=== PATIENT | female | born 1975 | race African-American/Black ===

== ENCOUNTER 2018-01-03 18:11 | Emergency (ER) | payer OTHER, MEDICAID ==
[~2018-01-03] VITALS: Ht 170.2 cm; Wt 86.2 kg
[~2018-01-03 18:11] MED LIST: ACCUNEB SO1.25 MG/1 INH; COZAAR 50 MG TA50 M1 PO; HYDROCHLOROTH12.5 M1 PO; HYDROCODONE-AP1 EAC6 PO; IBUPROFEN 600600 M1 PO; IRON325 PO; NAPROSYN500 MG PO; VITAMIN C500 M1 PO
[2018-01-03] MEDS ORDERED: PRINIVIL20 MG PO (18:26)
[2018-01-03] MEDS ORDERED: MS CONTIN15 MG PO (18:27)
[2018-01-03 19:23] LABS: ABSOLUTE EOSINOPHILS 0.1 thou/uL (0.0-0.7); ABSOLUTE LYMPHOCYTES 1.8 thou/uL (0.8-5.3); ABSOLUTE MONOCYTES 0.5 thou/uL (0.0-1.2); ABSOLUTE NEUTROPHILS 4.6 thou/uL (1.6-8.1); BASOPHILS 0.6 %; EOSINOPHILS 1.4 %; HEMATOCRIT 42.3 % (37.0-47.0); LYMPHOCYTES 25.4 %; MCH 28.7 pg (26.0-34.0); MCHC 33.1 g/dL (28.0-37.0); MCV 86.8 fL (80.0-100.0); MONOCYTES 7.3 %; MPV 8.7 fl. (7.2-11.1); NUCLEATED RBCS 0 /100WBC; PLATELET COUNT* 227 thou/uL (150-400); POLYS 65.3 %; RBC 4.88 mil/uL (4.20-5.00); RDW-CV 18.8 % (10.5-14.5)
[2018-01-03 19:23] LABS: URINE BILIRUBIN NEGATIVE (Negative); URINE BLOOD NEGATIVE (Negative); URINE CLARITY CLEAR; URINE COLOR YELLOW; URINE GLUCOSE-RANDOM NEGATIVE (Negative); URINE KETONES NEGATIVE (Negative); URINE LEUKOCYTES-REFLEX NEGATIVE (Negative); URINE NITRITE-REFLEX NEGATIVE (Negative); URINE PROTEIN NEGATIVE (Negative); URINE SPECIFIC GRAVITY 1.015 (1.005-1.030); URINE UROBILINOGEN 0.2 E.U./dl (0.2-1.0)
[2018-01-03 19:32] LABS: ANION GAP 12 mmol/L (7-16); BUN 6 mg/dL (7-18); CALCIUM 8.9 mg/dL (8.5-10.1); CHLORIDE 102 mmol/L (98-107); CO2 25 mmol/L (21-32); CREATININE 0.8 mg/dL (0.6-1.3); GLUCOSE 117 mg/dL (70-99); POTASSIUM 3.6 mmol/L (3.5-5.1); SODIUM 139 mmol/L (136-145)
[2018-01-03 19:39] LABS: ALBUMIN 3.7 g/dL (3.4-5.0); ALKALINE PHOSPHATASE 149 U/L (46-116); LIPASE 1100 U/L (73-393); SGOT 92 U/L (15-37); SGPT 71 U/L (30-65); TOTAL BILIRUBIN 0.4 mg/dL (<0.1-1.0); TOTAL PROTEIN 8.3 g/dL (6.4-8.2); TROPONIN-I LEVEL <0.06 ng/mL (<0.06)
[2018-01-03] MEDS ORDERED: PERCOCET PO (22:17)
[2018-01-03 22:42] VITALS: BP 172/88
== END 2018-01-03 22:45 | disposition home or self-care (01) ==
LOC: M.ERS 18:11
PROVIDERS: Physician Assistant
DX: K85.90 Acute pancreatitis without necrosis or infection, unspecified (principal); I10 Essential (primary) hypertension; F32.9 Major depressive disorder, single episode, unspecified; F41.9 Anxiety disorder, unspecified; J45.909 Unspecified asthma, uncomplicated; Z86.2 Personal history of diseases of the blood and blood-forming organs and certain disorders involving the immune mechanism; Z90.49 Acquired absence of other specified parts of digestive tract; Z88.5 Allergy status to narcotic agent; Z88.6 Allergy status to analgesic agent

== ENCOUNTER 2018-01-24 11:34 | Emergency (ER) | payer OTHER, MEDICAID ==
[~2018-01-24] VITALS: Ht 170.2 cm; Wt 82.6 kg
[~2018-01-24 11:34] MED LIST changes: +MS CONTIN15 MG PO; +PERCOCET PO; +PRINIVIL20 MG PO
[2018-01-24] MEDS ORDERED: LOPRESSOR50 PO (11:53)
[2018-01-24] MEDS ORDERED: ZOFRAN ODT4 MG PO (11:53)
[2018-01-24 12:27] LABS: ABSOLUTE MONOCYTES 0.5 thou/uL (0.0-1.2); ABSOLUTE NEUTROPHILS 6.6 thou/uL (1.6-8.1); BASOPHILS 0.5 %; EOSINOPHILS 0.1 %; HEMATOCRIT 41.3 % (37.0-47.0); HEMOGLOBIN 13.7 gm/dL (12.0-15.0); LYMPHOCYTES 22.2 %; MCH 28.9 pg (26.0-34.0); MCHC 33.3 g/dL (28.0-37.0); MONOCYTES 5.4 %; MPV 8.2 fl. (7.2-11.1); NUCLEATED RBCS 0 /100WBC; PLATELET COUNT* 307 thou/uL (150-400); POLYS 71.8 %; RBC 4.75 mil/uL (4.20-5.00); RDW-CV 18.7 % (10.5-14.5); WBC 9.1 thou/uL (4.0-11.0)
[2018-01-24 12:35] LABS: ANION GAP 16 mmol/L (7-16); APTT 25.9 Seconds (25.0-31.3); BUN 7 mg/dL (7-18); CALCIUM 9.4 mg/dL (8.5-10.1); CHLORIDE 98 mmol/L (98-107); CO2 22 mmol/L (21-32); CREATININE 0.8 mg/dL (0.6-1.3); GLUCOSE 86 mg/dL (70-99); INR 1.1; POTASSIUM 3.6 mmol/L (3.5-5.1); PROTIME 10.7 Seconds (9.20-11.50); SODIUM 136 mmol/L (136-145)
[2018-01-24 12:41] LABS: ALBUMIN 3.7 g/dL (3.4-5.0); ALKALINE PHOSPHATASE 120 U/L (46-116); AMYLASE 83 U/L (25-115); LIPASE 379 U/L (73-393); MAGNESIUM 1.9 mg/dL (1.8-2.4); SGOT 33 U/L (15-37); SGPT 33 U/L (30-65); TOTAL BILIRUBIN 0.5 mg/dL (<0.1-1.0); TOTAL PROTEIN 8.7 g/dL (6.4-8.2); TRIGLYCERIDE 86 mg/dL (<150); TROPONIN-I LEVEL <0.06 ng/mL (<0.06)
[2018-01-24 13:38] LABS: URINE BILIRUBIN NEGATIVE (Negative); URINE BLOOD NEGATIVE (Negative); URINE CLARITY CLEAR; URINE COLOR YELLOW; URINE GLUCOSE-RANDOM NEGATIVE (Negative); URINE KETONES NEGATIVE (Negative); URINE LEUKOCYTES-REFLEX NEGATIVE (Negative); URINE NITRITE-REFLEX NEGATIVE (Negative); URINE PROTEIN NEGATIVE (Negative); URINE SPECIFIC GRAVITY <= 1.005 (1.005-1.030); URINE UROBILINOGEN 0.2 E.U./dl (0.2-1.0)
[2018-01-24] MEDS ORDERED: PERCOCET 7.5-31 EACH PO (14:05)
[2018-01-24 14:25] VITALS: BP 168/73
== END 2018-01-24 14:27 | disposition home or self-care (01) ==
LOC: M.ERS 11:34
PROVIDERS: Personal Emergency Response Attendant
DX: K85.90 Acute pancreatitis without necrosis or infection, unspecified (principal); I10 Essential (primary) hypertension; F41.9 Anxiety disorder, unspecified; F32.9 Major depressive disorder, single episode, unspecified; J45.909 Unspecified asthma, uncomplicated; Z90.49 Acquired absence of other specified parts of digestive tract; Z88.5 Allergy status to narcotic agent; Z88.6 Allergy status to analgesic agent; Z86.2 Personal history of diseases of the blood and blood-forming organs and certain disorders involving the immune mechanism

== ENCOUNTER 2018-03-07 07:28 | Emergency (ER) | payer OTHER, MEDICAID ==
[~2018-03-07] VITALS: Ht 170.2 cm; Wt 82.6 kg
[~2018-03-07 07:28] MED LIST changes: +LOPRESSOR50 PO; +PERCOCET 7.5-31 EACH PO; +ZOFRAN ODT4 MG PO
[2018-03-07 08:11] LABS: HEMATOCRIT 44.6 % (37.0-47.0); HEMOGLOBIN 14.5 gm/dL (12.0-15.0); MCH 29.3 pg (26.0-34.0); MCHC 32.6 g/dL (28.0-37.0); MCV 89.9 fL (80.0-100.0); MPV 8.6 fl. (7.2-11.1); RBC 4.96 mil/uL (4.20-5.00); RDW-CV 17.2 % (10.5-14.5); WBC 4.7 thou/uL (4.0-11.0)
[2018-03-07 08:42] LABS: CREATININE 0.7 mg/dL (0.6-1.3); POTASSIUM 3.7 mmol/L (3.5-5.1)
[2018-03-07 08:52] LABS: ALBUMIN 3.7 g/dL (3.4-5.0); TOTAL BILIRUBIN 1.2 mg/dL (<0.1-1.0); TOTAL PROTEIN 8.8 g/dL (6.4-8.2)
[2018-03-07] MEDS ORDERED: NORCO 5-325 TA1 EACH PO (08:57)
[2018-03-07 09:09] VITALS: BP 184/94
== END 2018-03-07 09:10 | disposition home or self-care (01) ==
LOC: M.ERS 07:28
PROVIDERS: Emergency Medicine Emergency Medical Services
DX: M54.5 Low back pain (principal); W19.XXXA Unspecified fall, initial encounter; Y93.89 Activity, other specified; Y92.89 Other specified places as the place of occurrence of the external cause; Y99.8 Other external cause status

== ENCOUNTER 2018-07-16 15:06 | Emergency (ER) | payer OTHER, MEDICAID ==
[~2018-07-16] VITALS: Ht 170.2 cm; Wt 83.0 kg
[~2018-07-16 15:06] MED LIST changes: +NORCO 5-325 TA1 EACH PO
[2018-07-16] MEDS ORDERED: NAUSEA MEDICATION (15:17)
[2018-07-16] MEDS ORDERED: NORCO 5-325 TA1 EAC1 PO (15:37)
[2018-07-16 15:51] VITALS: BP 143/100
== END 2018-07-16 15:51 | disposition home or self-care (01) ==
LOC: M.ERS 15:06
DX: S02.5XXA Fracture of tooth (traumatic), initial encounter for closed fracture (principal); I10 Essential (primary) hypertension; F32.9 Major depressive disorder, single episode, unspecified; F41.9 Anxiety disorder, unspecified; Z86.2 Personal history of diseases of the blood and blood-forming organs and certain disorders involving the immune mechanism; Z90.49 Acquired absence of other specified parts of digestive tract; X58.XXXA Exposure to other specified factors, initial encounter; Y93.89 Activity, other specified; Y92.89 Other specified places as the place of occurrence of the external cause; Y99.8 Other external cause status

== ENCOUNTER 2018-10-25 17:01 | Emergency (ER) | payer OTHER, MEDICAID ==
[~2018-10-25] VITALS: Ht 170.2 cm; Wt 93.0 kg
[~2018-10-25 17:01] MED LIST changes: +NAUSEA MEDICATION; +NORCO 5-325 TA1 EAC1 PO
[2018-10-25 19:38] LABS: ABSOLUTE LYMPHOCYTES 1.5 thou/uL (0.8-5.3); ABSOLUTE MONOCYTES 0.5 thou/uL (0.0-1.2); ABSOLUTE NEUTROPHILS 7.2 thou/uL (1.6-8.1); BASOPHILS 0.4 %; EOSINOPHILS 0.4 %; HEMATOCRIT 35.1 % (37.0-47.0); HEMOGLOBIN 11.7 gm/dL (12.0-15.0); MCH 35.7 pg (26.0-34.0); MCHC 33.3 g/dL (28.0-37.0); MONOCYTES 5.6 %; MPV 9.4 fl. (7.2-11.1); NUCLEATED RBCS 0 /100WBC; PLATELET COUNT* 139 thou/uL (150-400); POLYS 77.6 %; RBC 3.28 mil/uL (4.20-5.00); RDW-CV 17.7 % (10.5-14.5); WBC 9.3 thou/uL (4.0-11.0)
[2018-10-25 19:44] LABS: CALCIUM 8.1 mg/dL (8.5-10.1); CREATININE 0.8 mg/dL (0.6-1.3); POTASSIUM 4.2 mmol/L (3.5-5.1)
[2018-10-25 19:49] LABS: ALBUMIN 1.5 g/dL (3.4-5.0); TOTAL BILIRUBIN 4.4 mg/dL (<0.1-1.0); TOTAL PROTEIN 6.8 g/dL (6.4-8.2)
[2018-10-25] MEDS ORDERED: NORCO 7.5-3251 EACH PO (20:17)
[2018-10-25] MEDS ORDERED: ALDACTONE100 MG PO (20:23)
[2018-10-25] MEDS ORDERED: LASIX 40 MG TAB40 M2 PO (20:24)
[2018-10-25 20:40] VITALS: BP 135/82
== END 2018-10-25 20:42 | disposition home or self-care (01) ==
LOC: M.ERS 17:01
PROVIDERS: Physician Assistant
DX: R18.8 Other ascites (principal); I10 Essential (primary) hypertension; F32.9 Major depressive disorder, single episode, unspecified; F41.9 Anxiety disorder, unspecified; J45.909 Unspecified asthma, uncomplicated; D64.9 Anemia, unspecified; Z90.49 Acquired absence of other specified parts of digestive tract; Z98.84 Bariatric surgery status

== ENCOUNTER 2018-10-31 15:59 | Emergency (ER) | payer OTHER, MEDICAID ==
[~2018-10-31] VITALS: Ht 170.2 cm; Wt 122.5 kg
[~2018-10-31 15:59] MED LIST changes: +ALDACTONE100 MG PO; +LASIX 40 MG TAB40 M2 PO; +NORCO 7.5-3251 EACH PO
[2018-10-31 17:19] LABS: ABSOLUTE BASOPHILS 0.1 thou/uL (0.0-0.2); ABSOLUTE LYMPHOCYTES 1.8 thou/uL (0.8-5.3); ABSOLUTE MONOCYTES 0.6 thou/uL (0.0-1.2); ABSOLUTE NEUTROPHILS 5.7 thou/uL (1.6-8.1); BASOPHILS 0.7 %; EOSINOPHILS 0.1 %; HEMATOCRIT 31.7 % (37.0-47.0); HEMOGLOBIN 10.7 gm/dL (12.0-15.0); LYMPHOCYTES 22.4 %; MCHC 33.7 g/dL (28.0-37.0); MCV 106.8 fL (80.0-100.0); MONOCYTES 7.7 %; MPV 7.8 fl. (7.2-11.1); NUCLEATED RBCS 0 /100WBC; PLATELET COUNT* 173 thou/uL (150-400); POLYS 69.1 %; RBC 2.97 mil/uL (4.20-5.00); WBC 8.3 thou/uL (4.0-11.0)
[2018-10-31 17:31] LABS: INR 1.7; PROTIME 17.4 Seconds (9.20-11.50)
[2018-10-31 17:36] LABS: CALCIUM 7.4 mg/dL (8.5-10.1); CREATININE 0.7 mg/dL (0.6-1.3)
[2018-10-31 17:40] LABS: ALBUMIN 1.5 g/dL (3.4-5.0); TOTAL BILIRUBIN 4.4 mg/dL (<0.1-1.0); TOTAL PROTEIN 6.3 g/dL (6.4-8.2)
[2018-10-31 18:36] LABS: URINE BLOOD NEGATIVE (Negative); URINE CLARITY CLEAR; URINE COLOR YELLOW; URINE GLUCOSE-RANDOM NEGATIVE (Negative); URINE KETONES NEGATIVE (Negative); URINE LEUKOCYTES-REFLEX NEGATIVE (Negative); URINE NITRITE-REFLEX NEGATIVE (Negative); URINE PROTEIN NEGATIVE (Negative); URINE SPECIFIC GRAVITY 1.015 (1.005-1.030)
[2018-10-31 18:40] LABS: ICTOTEST (BILI CONFIRMATORY) Positive (Negative); URINE BILIRUBIN 2+ (Negative)
[2018-10-31] MEDS ORDERED: LASIX 40 MG TAB40 M2 PO (20:01)
[2018-10-31] MEDS ORDERED: ALDACTONE100 MG PO (20:01)
[2018-10-31] MEDS ORDERED: OXYCODONE HCL 55 MG PO (20:09)
[2018-10-31 20:24] VITALS: BP 132/56
--- NOTE | 2018-11-01 10:15 | EKG ---
[place] [address] ELECTROCARDIOGRAM REPORT Name: SANDRA BEAN Room: [facility]#: [id number] Admission: 10/31/18 Attend Phys: Discharge: 10/31/18 Date of : 73 Report #: [id number] THIS REPORT FOR: //name// [facility] ED Test Date: 2018-10-31 Test Time: 17:30:05 Pat Name: SANDRA BEAN Department: Room: Gender: F Vice President Of Contracts: : 1975 Requested By: Priscila Matos Order Number: [id number] MD: Chente Somers Measurements Intervals [place] Rate: 92 P: 44 AR: 130 QRS: -12 QRSD: 66 T: -28 QT: 439 QTc: 544 Interpretive Statements Sinus rhythm Low voltage, precordial leads Borderline abnrm T, anterolateral leads Prolonged QT interval No previous ECG available for comparison Electronically Signed On 11-01-2018 10:15:11 WINDOWS SECURITY ANALYST by Chente Somers [email or web address] <ELECTRONICALLY SIGNED> By: Chente Somers MD, [facility] 11/01/18 1015 29 29 Chente Somers MD, FAC /EPI
== END 2018-10-31 20:24 | disposition home or self-care (01) ==
LOC: M.ERS 15:59
PROVIDERS: Nurse Practitioner Family
DX: R18.8 Other ascites (principal); E80.6 Other disorders of bilirubin metabolism; I10 Essential (primary) hypertension; F32.9 Major depressive disorder, single episode, unspecified; F41.9 Anxiety disorder, unspecified; Z86.2 Personal history of diseases of the blood and blood-forming organs and certain disorders involving the immune mechanism; Z90.49 Acquired absence of other specified parts of digestive tract; Z98.890 Other specified postprocedural states

== ENCOUNTER 2018-11-05 13:10 | Emergency (ER) | payer OTHER, MEDICAID ==
[~2018-11-05] VITALS: Ht 170.2 cm; Wt 92.5 kg
[~2018-11-05 13:10] MED LIST changes: +OXYCODONE HCL 55 MG PO
[2018-11-05 15:06] LABS: ABSOLUTE BASOPHILS 0.1 thou/uL (0.0-0.2); ABSOLUTE LYMPHOCYTES 1.5 thou/uL (0.8-5.3); ABSOLUTE MONOCYTES 0.8 thou/uL (0.0-1.2); ABSOLUTE NEUTROPHILS 4.8 thou/uL (1.6-8.1); BASOPHILS 1.3 %; EOSINOPHILS 0.1 %; HEMATOCRIT 32.6 % (37.0-47.0); HEMOGLOBIN 11.1 gm/dL (12.0-15.0); LYMPHOCYTES 21.1 %; MCH 36.6 pg (26.0-34.0); MCV 107.8 fL (80.0-100.0); MONOCYTES 10.4 %; NUCLEATED RBCS 0 /100WBC; PLATELET COUNT* 188 thou/uL (150-400); POLYS 67.1 %; RBC 3.02 mil/uL (4.20-5.00); RDW-CV 20.3 % (10.5-14.5); WBC 7.2 thou/uL (4.0-11.0)
[2018-11-05 15:13] LABS: CALCIUM 7.9 mg/dL (8.5-10.1); CREATININE 0.9 mg/dL (0.6-1.3); POTASSIUM 3.5 mmol/L (3.5-5.1)
[2018-11-05 15:17] LABS: ALBUMIN 1.5 g/dL (3.4-5.0); TOTAL PROTEIN 6.9 g/dL (6.4-8.2)
[2018-11-05 15:39] LABS: PLATELET ESTIMATE ADEQUATE
[2018-11-05 15:41] LABS: ANISOCYTOSIS 1+; MACROCYTES 1+
[2018-11-05 15:47] LABS: URINE BLOOD NEGATIVE (Negative); URINE CLARITY CLEAR; URINE COLOR DARK YELLOW; URINE GLUCOSE-RANDOM TRACE (Negative); URINE KETONES NEGATIVE (Negative); URINE LEUKOCYTES-REFLEX NEGATIVE (Negative); URINE NITRITE-REFLEX NEGATIVE (Negative); URINE PROTEIN TRACE (Negative); URINE SPECIFIC GRAVITY >= 1.030 (1.005-1.030); URINE UROBILINOGEN 0.2 E.U./dl (0.2-1.0)
[2018-11-05 15:48] LABS: URINE BILIRUBIN 2+ (Negative)
[2018-11-05 15:49] LABS: ICTOTEST (BILI CONFIRMATORY) Positive (Negative)
[2018-11-05] MEDS ORDERED: OXYCODONE HCL 55 MG PO (15:56)
[2018-11-05 15:59] VITALS: BP 125/73
--- NOTE | 2018-11-06 12:25 | EKG ---
[place] [address] ELECTROCARDIOGRAM REPORT Name: SANDRA BEAN Room: [facility]#: [id number] Admission: 11/05/18 Attend Phys: Discharge: 11/05/18 Date of : 73 Report #: [id number] THIS REPORT FOR: //name// [facility] ED Test Date: 2018-11-05 Test Time: 13:30:39 Pat Name: SANDRA BEAN Department: Room: Gender: F Clinical Cytogeneticist Scientist: Tyson BORREGO : 1975 Requested By: Hemanth Ferris Order Number: [id number] MD: Chente Somers Measurements Intervals [place] Rate: 100 P: 27 MO: 127 QRS: -10 QRSD: 78 T: -12 QT: 373 QTc: 482 Interpretive Statements Sinus tachycardia Borderline T abnormalities, anterior leads Compared to ECG 10/31/2018 17:30:05 T-wave abnormality now present Sinus rhythm no longer present Prolonged QT interval no longer present Electronically Signed On 11-06-2018 12:25:20 MANAGER LATIN by Chente Somers [email or web address] <ELECTRONICALLY SIGNED> By: Chente Somers MD, FACC 11/06/18 1225 1330 1330 Chente Somers MD, [facility] /EPI
== END 2018-11-05 16:01 | disposition home or self-care (01) ==
LOC: M.ERS 13:10
PROVIDERS: Emergency Medicine
DX: R18.8 Other ascites (principal); G89.29 Other chronic pain; R10.84 Generalized abdominal pain; I10 Essential (primary) hypertension; F32.9 Major depressive disorder, single episode, unspecified; F41.9 Anxiety disorder, unspecified; J45.909 Unspecified asthma, uncomplicated; D64.9 Anemia, unspecified; Z90.49 Acquired absence of other specified parts of digestive tract; Z98.84 Bariatric surgery status

== ENCOUNTER → 2018-11-09 | Outpatient (CLI) | payer OTHER, MEDICAID ==
[~2018-11-09] MED LIST changes: +CLEOCIN HCL300 MG PO; +LACTULOSE20 GM/30 M PO; +LASIX 40 MG TAB40 M1 PO; +LOPRESSOR25 PO
[2018-11-09 10:09] LABS: ABSOLUTE BASOPHILS 0.1 thou/uL (0.0-0.2); ABSOLUTE LYMPHOCYTES 1.5 thou/uL (0.8-5.3); ABSOLUTE MONOCYTES 0.6 thou/uL (0.0-1.2); ABSOLUTE NEUTROPHILS 3.8 thou/uL (1.6-8.1); BASOPHILS 1.7 %; EOSINOPHILS 0.2 %; HEMATOCRIT 32.9 % (37.0-47.0); HEMOGLOBIN 11.1 gm/dL (12.0-15.0); LYMPHOCYTES 25.1 %; MCH 36.9 pg (26.0-34.0); MCHC 33.7 g/dL (28.0-37.0); MCV 109.6 fL (80.0-100.0); MPV 8.9 fl. (7.2-11.1); NUCLEATED RBCS 0 /100WBC; PLATELET COUNT* 176 thou/uL (150-400); RBC 3.01 mil/uL (4.20-5.00); RDW-CV 20.3 % (10.5-14.5); WBC 6.1 thou/uL (4.0-11.0)
[2018-11-09 10:16] LABS: INR 1.8; PROTIME 18.8 Seconds (9.20-11.50)
[2018-11-09 10:21] LABS: ALBUMIN 1.4 g/dL (3.4-5.0); CALCIUM 8.2 mg/dL (8.5-10.1); CREATININE 0.8 mg/dL (0.6-1.3); POTASSIUM 3.7 mmol/L (3.5-5.1); TOTAL BILIRUBIN 3.9 mg/dL (<0.1-1.0); TOTAL PROTEIN 6.9 g/dL (6.4-8.2)
[2018-11-09 11:15] LABS: TARGET CELLS 1+; TEARDROPS 1+
[2018-11-09 11:16] LABS: ANISOCYTOSIS 1+; MACROCYTES 1+
[2018-11-09 12:37] LABS: BF RBC <1000 /mm3; TOTAL CELL COUNT <20 /mm3
[2018-11-09 12:43] LABS: COLOR YELLOW; TOTAL VOLUME 3560 ml
[2018-11-09 12:44] LABS: CLARITY CLEAR
[2018-11-09 12:45] LABS: SOURCE ASCITES
[2018-11-10 12:05] LABS: BODY FLUID PROTEIN 0.8 g/dL (())
[2018-11-13 11:06] LABS: SOURCE PARACENTESIS
== END ==
LOC: M.LAB 11-07 07:15 → M.ULTRA 11-07 08:00 → M.LAB 09:00 → M.ULTRA 11-14 13:00
PROVIDERS: Physician Assistant
DX: R18.8 Other ascites (principal); R14.0 Abdominal distension (gaseous); K85.90 Acute pancreatitis without necrosis or infection, unspecified; Z90.49 Acquired absence of other specified parts of digestive tract; Z98.890 Other specified postprocedural states; Z79.899 Other long term (current) drug therapy

== ENCOUNTER 2018-12-18 21:46 | Inpatient (IN) | payer OTHER, MEDICAID ==
[~2018-12-18] VITALS: Ht 157.5 cm; Wt 90.4 kg
--- NOTE | ~2018-12-18 | CON ---
[address] [address] CONSULTATION Name: DAVIDE BEANMARCELLA Room: [address] ADM IN M.R.#: [id number] Admission: 12/19/18 Attend Phys: Man Sanchez Discharge: Date of : 73 Report #: [id number] THIS REPORT FOR: //name// CC: KOLE Galan Physician staff [facility] DICTATED BY: Camilla NOVAK DATE OF SERVICE: 12/19/2018 Please note at the time of this dictation, the patient was seen and physically examined by myself. REASON FOR CONSULTATION: Decompensated liver cirrhosis. HISTORY OF PRESENT ILLNESS: This is a 43-year-old female who has been having worsening of her mental status to the point of being very obtunded. Prior to all of that, when she presented to the Emergency Room, she had not been feeling well for several days. Once she hit the Emergency Room because of her obtunded state, she was then sedated and ventilated, unable to obtain significant history and all is obtained from the chart. It was noted that she denied any hematemesis or melena. Prior to intubation, she just had some nausea. She did not mention anything about fever and it was noted when she was intubated, she was in septic shock and requiring pressors. The patient was recently hospitalized in October, was noted to have decompensated liver cirrhosis, underlying alcohol abuse, last drink was supposed to be in 08/2018 along with fatty infiltration of the liver. She did undergo an EGD that was completely normal that showed no varices and negative for any portal hypertension. Her last admission, she did have some ascites, 3.6 liters were removed and on CT at this time shows that she has significant ascites again. The patient was sent home on oxycodone at discharge the end of October due to her chronic pain from pancreatitis. ALLERGIES: No known drug allergies. MEDICATIONS: From home include she was on spironolactone 100, Lasix 40 and supposed to be on lactulose and Lopressor. PAST MEDICAL HISTORY: Hypertension, depression, anxiety, asthma, anemia. She had necrotizing pancreatitis with peritonitis, pancreatitis, cirrhosis, chronic pain, and asthma. PAST SURGICAL HISTORY: She had gastric bypass, cholecystectomy, and tubal ligation. 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 FAMILY HISTORY: Insignificant. SOCIAL HISTORY: Never smoked. She quit drinking in 08/2018. Her alcohol level was negative on admission. REVIEW OF SYSTEMS: A 12-point review of systems unable to obtain since she is sedated and on the vent. PHYSICAL EXAMINATION: VITAL SIGNS: Temperature 36.7, pulse 116, respirations are 25 and blood pressure is 96/60. HEART: Tachycardic. LUNGS: Coarse and on the vent. ABDOMEN: Soft. Positive fluid wave. Ostomy in the right lower quadrant with brown stool. EXTREMITIES: Trace edema in her lower extremities. LABORATORY DATA: Hemoglobin 7.3, platelets 103, MCV 119, white count 6.6. Sodium 141, potassium is 3. GFR is 65. Ammonia was 116. Total bilirubin 2.9, direct is 2.5. Alkaline phosphatase 69, ALT is 31, AST is 32. PT is 21, INR is 3. Iron is 52, iron sat is 14, soluble transferrin is 548. Albumin is 0.6, total protein is 4.7. CT of the abdomen and pelvis shows extensive ascites, extensive fatty liver infiltration along with decompensated cirrhosis of the liver. Chest x-ray shows bilateral infiltrates, pneumonia. CT of the head was negative. IMPRESSION: 1. Decompensated alcoholic cirrhosis with fatty infiltration noted. MELD 24 Child-Flowers C. 2. Ascites. 3. HE. 4. Respiratory failure secondary to pneumonia. 5. Anemia. 6. Hypokalemia. 7. Elevated troponin, non-ST elevation myocardial infarction. 8. Septic shock. PLAN: 1. Continue her lactulose per tube. 2. Continue with her albumin replacement. 3. We will monitor her liver functions with CMP and PT/INR. 4. Further recommendations to be made once Dr. Viveros sees [place] [address] CONSULTATION Name: SANDRA BEAN Room: [address] IN [facility]#: [id number] Admission: 12/19/18 Attend Phys: Man Sanchez Discharge: Date of : 73 Report #: [id number] Thank you for allowing us to participate in this patient's care. Please do not hesitate to call with any questions in regard to this consult. ADDENDUM: REFERRING PHYSICIAN: Katheryn Galan MD I have seen and examined the patient and agree with plan that has been outlined by our nurse practitioner. At the present time, the patient has a very advanced liver disease with MELD score of close to 25 with associated hypotension and respiratory failure. It is likely that her respiratory failure exacerbated her sepsis and is related to severe pneumonia and for this reason, she is on antibiotics for the same. Unfortunately, however, her liver disease is very advanced, but she is not a candidate for any type of treatment with steroids due to her being on pressors and having overwhelming sepsis. She is not really a good candidate for pentoxifylline as well. I spoke with her sister in the room and with her over the phone to give them information regarding the status of her liver disease and her overall condition. I told them in the next 24-48 hours, we will determine how things are going to go with regards to her treatment. She is very gravely ill at this point in time and we will continue with supportive care, but it may not be up to us whether or not she survives. With a MELD score of 25 and a Maddrey discriminant function of over 90, she has a high mortality of close to 25-30% over the next few months. I should note that the patient was instructed the last time she was in the hospital that she needed to seek counseling with regards to her alcohol abuse and she has not done so. When I talked with her , he states that she has not been drinking at all since being discharged, but it is unclear whether or not that is the case. He is not completely sure if that is the case. In any event, we will continue to follow her while she is in the hospital and do what we can to help. Again she is not a transplant candidate, so transferring her to [facility] will not be necessary. By: [id number] Viveros DO /asia
[2018-12-18 21:48] VITALS: BP 86/67
[2018-12-18 22:58] LABS: ABSOLUTE BASOPHILS 0.1 thou/uL (0.0-0.2); ABSOLUTE EOSINOPHILS 0.1 thou/uL (0.0-0.7); ABSOLUTE LYMPHOCYTES 1.7 thou/uL (0.8-5.3); ABSOLUTE MONOCYTES 0.4 thou/uL (0.0-1.2); ABSOLUTE NEUTROPHILS 4.8 thou/uL (1.6-8.1); HEMATOCRIT 24.1 % (37.0-47.0); HEMOGLOBIN 8.1 gm/dL (12.0-15.0); LYMPHOCYTES 23.9 %; MCH 40.2 pg (26.0-34.0); MCHC 33.7 g/dL (28.0-37.0); MCV 119.2 fL (80.0-100.0); MONOCYTES 6.1 %; NUCLEATED RBCS 0 /100WBC; PLATELET COUNT* 134 thou/uL (150-400); RBC 2.02 mil/uL (4.20-5.00); RDW-CV 15.9 % (10.5-14.5)
[2018-12-18 23:07] LABS: APTT 58.1 Seconds (25.0-31.3); INR 2.7; PROTIME 27.2 Seconds (9.20-11.50)
[2018-12-18 23:15] LABS: BE -6.6 mmol/L (-2 to +3); PCO2 46.3 mmHg (35.0-45.0)
[2018-12-18 23:16] LABS: CALCIUM 6.5 mg/dL (8.5-10.1); CREATININE 1.1 mg/dL (0.6-1.3); POTASSIUM 3.1 mmol/L (3.5-5.1); TROPONIN-I LEVEL 0.15 ng/mL (<0.06)
[2018-12-18 23:17] LABS: PO2 57.5 mmHg (75.0-100.0); pH 7.259 (7.340-7.450)
[2018-12-18 23:30] LABS: ALBUMIN 0.8 g/dL (3.4-5.0); CK-MB MASS 0.7 ng/mL (<0.5-3.6); TOTAL BILIRUBIN 3.3 mg/dL (<0.1-1.0); TOTAL PROTEIN 5.4 g/dL (6.4-8.2)
[2018-12-19] VITALS (57 sets, daily range): BP systolic 54–156; BP diastolic 25–99
--- NOTE | 2018-12-19 00:40 | NUR ---
PT VENTED AND ON SEDATION, TRIPPLE LUMEN CATHETER INSERTED BY PHYSICIAN, BARRETO CATHETER INSERTED, PT 'S DAUGHTER CAME IN AND WAS UPDATED ON PLAN OF CARE, DAUGHTER ASKING MANY QUESTIONS ABOUT PT'S CONDITION. AT [address] SCAN, [employer] EMPL[employer]EE GIVEN REPORT PRIOR TRANSFER AND ASSUMED CARE OF PT BEFORE PT LEFT ER.
--- NOTE | 2018-12-19 00:45 | NUR ---
THIS NURSE ASSISTED ER IN PATIENT CARE AND TRANSPORT TO CT THEN TRANSPORT TO ICU. PATIENT TOLERATED WELL. ARRIVED IN ICU AT 0045, ON VENT AND FENTANYL AND VERSED GTT. DIFFICULTY GETTING SEDATED. HEARTRATE ELEVATED AND DIFFICULTY ASSESSING SAT WHEN ELEVATED. GAVE ADMIT INFORMATION. DAUGHTER ASKED ABOUT CHANGING DPOA BUT EXPLAINED THAT CAN ONLY OCCUR WHEN SHE'S A&OX4.
--- NOTE | 2018-12-19 01:13 | NUR ---
[address] RANDLE ON GREATER NEED FOR SEDATION, ELEVATED LACTIC ACID, LOW k, LIVER DYSFUNCTION, ORDERS RECV'D.
[2018-12-19 04:12] LABS: HEMATOCRIT 21.4 % (37.0-47.0); HEMOGLOBIN 7.3 gm/dL (12.0-15.0); MCH 40.4 pg (26.0-34.0); NUCLEATED RBCS 0 /100WBC; PLATELET COUNT* 103 thou/uL (150-400); RDW-CV 16.1 % (10.5-14.5); WBC 6.6 thou/uL (4.0-11.0)
[2018-12-19 04:47] LABS: ALBUMIN 0.6 g/dL (3.4-5.0); CALCIUM 6.1 mg/dL (8.5-10.1); CREATININE 1.1 mg/dL (0.6-1.3); MAGNESIUM 1.1 mg/dL (1.8-2.4); TOTAL BILIRUBIN 2.9 mg/dL (<0.1-1.0); TOTAL PROTEIN 4.7 g/dL (6.4-8.2)
[2018-12-19 04:56] LABS: ABSOLUTE BASOPHILS 0.1 thou/uL (0.0-0.2); ABSOLUTE LYMPHOCYTES 0.4 thou/uL (0.8-5.3); ABSOLUTE MONOCYTES 0.3 thou/uL (0.0-1.2); ABSOLUTE NEUTROPHILS 5.8 thou/uL (1.6-8.1); ANISOCYTOSIS 2+; MACROCYTES 2+; PLATELET ESTIMATE DECREASED; POIKILOCYTOSIS 1+
[2018-12-19 04:57] LABS: TOXIC GRANULATION 1+
[2018-12-19 05:02] LABS: TROPONIN-I LEVEL 1.83 ng/mL (<0.06)
--- NOTE | 2018-12-19 05:46 | NUR ---
NOT PROGRESSING TOWARDS GOALS. ATTEMPTED TO WEAN FIO2 TO 80% BUT HAD TO INCREASE TO 100%. DIFFICULTY MAINTAINING SATS RONNIE ON 100% WITH ANY STIMULATION. MAXED ON LEVOPHED. LOW UOP. LABS NOT IMPROVING. DR. RANDLE AWARE. SPOKE WITH HIM SEVERAL TIMES TONIGHT. EKG OBTAINED THIS AM AND EKG ASSESSED BY DR LAGUNA.
[2018-12-19 06:04] LABS: BE -7.2 mmol/L (-2 to +3); PCO2 32.4 mmHg (35.0-45.0); PO2 65.7 mmHg (75.0-100.0); pH 7.353 (7.340-7.450)
--- NOTE | 2018-12-19 10:01 | EKG ---
[place] [address] ELECTROCARDIOGRAM REPORT Name: SANDRA BEAN Room: [address] ADM IN M.R.#: [id number] Admission: 12/19/18 Attend Phys: Man Sanchez Discharge: Date of : 73 Report #: [id number] THIS REPORT FOR: //name// [facility] ED Test Date: 2018-12-18 Test Time: 22:02:32 Pat Name: SANDRA BEAN Department: Room: [facility] Gender: F Messenger Floorperson: GIAN : 1975 Requested By: Ronal Matson Order Number: [id number] MD: Wolf Salcido Measurements Intervals [place] Rate: 134 P: 69 [place]: 134 QRS: -42 QRSD: 59 T: QT: 311 QTc: 465 Interpretive Statements Sinus tachycardia Inferior infarct, old Probable anterior infarct, age indeterminate Compared to ECG 11/15/2018 17:09:11 rate increased Electronically Signed On 12-19-2018 10:01:28 CDT by Wolf Salcido [email or web address] <ELECTRONICALLY SIGNED> By: Wolf Salcido MD, [facility] 12/19/18 1001 01 01 Wolf Salcido MD, [facility] /EPI
--- NOTE | 2018-12-19 11:02 | NUR ---
ICU ROUNDING: RN IN-CHARGE OF PATIENT INFORMS THAT THE PATIENT'S FAMILY (POSSIBLY AUNT) DIONNE IS CONCERNED THAT THE PATIENT'S SPOUSE MAY NOT MAKE HEALTHCARE DECISIONS APPROPRIATELY D/T A RECENT IN HIS FAMILY. ALSO PATIENT'S DTR QUESTIONS THE ABILITY TO CHANGE THE PATIENT'S DPOA IN THE E.R., BUT HAS BEEN INFORMED THAT THIS CAN'T BE DONE AT THIS TIME THE PATIENT IS NOT A&O AT THIS TIME. G.I. AND PULM CONSULTED. PATIENT INTUBATED AND SEDATED. CM WILL REMAIN AVAILABLE TO ASSIST AND FOLLOW NEEDED.
[2018-12-19 12:32] LABS: BE -10.1 mmol/L (-2 to +3); PCO2 24.5 mmHg (35.0-45.0); PO2 99.4 mmHg (75.0-100.0); pH 7.372 (7.340-7.450)
[2018-12-19 14:54] LABS: URINE BLOOD 3+ (Negative); URINE CLARITY CLEAR; URINE COLOR DARK YELLOW; URINE GLUCOSE-RANDOM NEGATIVE (Negative); URINE KETONES NEGATIVE (Negative); URINE LEUKOCYTES-REFLEX TRACE (Negative); URINE NITRITE-REFLEX NEGATIVE (Negative); URINE PROTEIN TRACE (Negative); URINE SPECIFIC GRAVITY >= 1.030 (1.005-1.030); URINE UROBILINOGEN 0.2 E.U./dl (0.2-1.0)
[2018-12-19 14:58] LABS: ICTOTEST (BILI CONFIRMATORY) Positive (Negative); URINE BILIRUBIN 2+ (Negative)
[2018-12-19 15:04] LABS: HYALINE CASTS >10 Many /LPF (None Seen)
[2018-12-19 15:05] LABS: SQUAMOUS 4-10 Moderate /LPF (0-3)
[2018-12-19 15:07] LABS: URINE WBC-REFLEX 0-5 Rare /HPF (0-5)
[2018-12-19 15:08] LABS: BACTERIA-REFLEX 1-9 Few /HPF (None Seen); CRYSTALS None Seen /LPF (None Seen); MUCUS None Seen strn/LPF (None Seen); URINE RBC >20 Many /HPF (0-2)
--- NOTE | 2018-12-19 15:14 | 2DMMODE ---
[place] [address] 2 D/M-MODE ECHOCARDIOGRAM Name: GENEVASANDRA Room: [address] ADM IN [facility]#: [id number] Admission: 12/19/18 Attend Phys: Katheryn Galan Discharge: Date of : 73 Date of Service: 12/19/18 1514 Report #: [id number] THIS REPORT FOR: //name// APPROVED REPORT Study performed: 12/19/2018 10:16:33 EXAM: Comprehensive 2D, Doppler, and color-flow Echocardiogram Patient Location: In-Patient Room #: [facility] Status: routine BSA: 1.87 HR: 121 bpm BP: 96/60 mmHg Rhythm: NSR Other Information Study Quality: Good Indications Dyspnea Elevated Troponin 2D Dimensions IVSd: 9.77 (7-11mm) LVOT Diam: 20.63 (18-24mm) LVDd: 43.59 mm PWd: 10.36 (7-11mm) LVDs: 37.28 (25-40mm) Aortic Root: 27.49 mm Volumes Left Atrial Volume (Systole) LA ESV Index: 14.60 mL/m2 Aortic Valve AoV Peak Chandu.: 1.22 m/s AO Peak Gr.: 5.98 mmHg LVOT Max P.93 mmHg AO Mean Gr.: 3.51 mmHg LVOT Mean P.19 mmHg LVOT Max V: 1.22 m/s AO V2 VTI: 16.90 cm LVOT Mean V: 0.83 m/s TOMMY (VTI): 3.26 cm2 LVOT V1 VTI: 16.51 cm TDI Medial E' Chandu.: 0.11 m/s Lateral E' Chandu.: 0.11 m/[place] [address] 2 D/M-MODE ECHOCARDIOGRAM Name: SANDRA BEAN Room: [address] IN M.R.#: [id number] Admission: 12/19/18 Attend Phys: Katheryn Galan Discharge: Date of : 73 Date of Service: 12/19/18 1514 Report #: [id number] Pulmonary Valve PV Peak Chandu.: 1.05 m/s PV Peak Gr.: 4.42 mmHg Tricuspid Valve RAP Estimate: 5.00 mmHg TR Peak Gr.: 40.24 mmHg RVSP: 45.00 mmHg PA Pressure: 45.00 mmHg Left Ventricle The left ventricle is normal size. Regional wall motion abnormalities are noted. Moderate hypokinesis of distal anteroseptal wall and apex There is normal left ventricular wall thickness. Left ventricular systolic function is moderately decreased. LVEF is 35-40%. The left ventricular diastolic function is normal. Right Ventricle The right ventricle is normal size. The right ventricular systolic function is normal. Atria The left atrium size is normal. The right atrium size is normal. Aortic Valve The aortic valve is normal in structure. No aortic regurgitation is present. There is no aortic valvular stenosis. Mitral Valve The mitral valve is normal in structure. There is no mitral valve regurgitation noted. No evidence of mitral valve stenosis. Tricuspid Valve The tricuspid valve is normal in structure. Mild tricuspid regurgitation. estimate pa pressure 50 mm Hg Pulmonic Valve Pulmonic valve is not well visualized. There is no pulmonic valvular regurgitation. Great Vessels The aortic root is normal in size. IVC is not well visualized. Pericardium There [place] [address] 2 D/M-MODE ECHOCARDIOGRAM Name: GENEVASANDRA Room: [address] IN .R.#: [id number] Admission: 12/19/18 Attend Phys: Katheryn Galan Discharge: Date of : 73 Date of Service: 12/19/181513 Report #: [id number] <Conclusion> LVEF is 35-40%. Regional wall motion abnormalities are noted. Moderate hypokinesis of distal anteroseptal wall and apex <ELECTRONICALLY SIGNED> By: Wolf Salcido MD, [facility] 12/19/18 1514 13 1514 Wolf Salcido MD, FACC /INF
[2018-12-19 15:19] LABS: MAGNESIUM 3.4 mg/dL (1.8-2.4)
[2018-12-19 15:21] LABS: POTASSIUM 4.5 mmol/L (3.5-5.1)
[2018-12-19 15:35] LABS: INFLUENZA A ANTIGEN None Detected (None Detect); INFLUENZA B ANTIGEN None Detected (None Detect)
--- NOTE | 2018-12-19 16:29 | 2DMMODE ---
[place] [address] 2 D/M-MODE ECHOCARDIOGRAM Name: GENEVASANDRA Room: [address] ADM IN [facility]#: [id number] Admission: 12/19/18 Attend Phys: Katheryn Galan Discharge: Date of : 73 Date of Service: 12/19/18 1514 Report #: [id number] THIS REPORT FOR: //name// APPROVED REPORT Study performed: 12/19/2018 10:16:33 EXAM: Comprehensive 2D, Doppler, and color-flow Echocardiogram Patient Location: In-Patient Room #: [facility] Status: routine BSA: 1.87 HR: 121 bpm BP: 96/60 mmHg Rhythm: NSR Other Information Study Quality: Good Indications Dyspnea Elevated Troponin 2D Dimensions IVSd: 9.77 (7-11mm) LVOT Diam: 20.63 (18-24mm) LVDd: 43.59 mm PWd: 10.36 (7-11mm) LVDs: 37.28 (25-40mm) Aortic Root: 27.49 mm Volumes Left Atrial Volume (Systole) LA ESV Index: 14.60 mL/m2 Aortic Valve AoV Peak Chandu.: 1.22 m/s AO Peak Gr.: 5.98 mmHg LVOT Max P.93 mmHg AO Mean Gr.: 3.51 mmHg LVOT Mean P.19 mmHg LVOT Max V: 1.22 m/s AO V2 VTI: 16.90 cm LVOT Mean V: 0.83 m/s TOMMY (VTI): 3.26 cm2 LVOT V1 VTI: 16.51 cm TDI Medial E' Chandu.: 0.11 m/s Lateral E' Chandu.: 0.11 m/[place] [address] 2 D/M-MODE ECHOCARDIOGRAM Name: SANDRA BEAN Room: [address] IN M.R.#: [id number] Admission: 12/19/18 Attend Phys: Katheryn Galan Discharge: Date of : 73 Date of Service: 12/19/18 1514 Report #: [id number] Pulmonary Valve PV Peak Chandu.: 1.05 m/s PV Peak Gr.: 4.42 mmHg Tricuspid Valve RAP Estimate: 5.00 mmHg TR Peak Gr.: 40.24 mmHg RVSP: 45.00 mmHg PA Pressure: 45.00 mmHg Left Ventricle The left ventricle is normal size. Regional wall motion abnormalities are noted. Moderate hypokinesis of distal anteroseptal wall and apex There is normal left ventricular wall thickness. Left ventricular systolic function is moderately decreased. LVEF is 35-40%. The left ventricular diastolic function is normal. Right Ventricle The right ventricle is normal size. The right ventricular systolic function is normal. Atria The left atrium size is normal. The right atrium size is normal. Aortic Valve The aortic valve is normal in structure. No aortic regurgitation is present. There is no aortic valvular stenosis. Mitral Valve The mitral valve is normal in structure. There is no mitral valve regurgitation noted. No evidence of mitral valve stenosis. Tricuspid Valve The tricuspid valve is normal in structure. Mild tricuspid regurgitation. estimate pa pressure 50 mm Hg Pulmonic Valve Pulmonic valve is not well visualized. There is no pulmonic valvular regurgitation. Great Vessels The aortic root is normal in size. IVC is not well visualized. Pericardium There is no peric[place] [address] 2 D/M-MODE ECHOCARDIOGRAM Name: GENEVASANDRA Room: [address] IN .R.#: [id number] Admission: 12/19/18 Attend Phys: Katheryn Galan Discharge: Date of : 73 Date of Service: 12/19/181513 Report #: [id number] <Conclusion> LVEF is 35-40%. Regional wall motion abnormalities are noted. Moderate hypokinesis of distal anteroseptal wall and apex <ELECTRONICALLY SIGNED> By: Wolf Salcido MD, [facility] 12/19/18 1514 13 1514 Wolf Salcido MD, FACC /INF
--- NOTE | 2018-12-19 17:54 | EKG ---
[place] [address] ELECTROCARDIOGRAM REPORT Name: SANDRA BEAN Room: [address] ADM IN M.R.#: [id number] Admission: 12/19/18 Attend Phys: Man Sanchez Discharge: Date of : 73 Report #: [id number] THIS REPORT FOR: //name// [facility] Test Date: 2018-12-19 Test Time: 05:36:18 Pat Name: SANDRA BEAN Department: Room: [address] Gender: F Commercial Intern: ALLY : 1975 Requested By: Katheryn Galan Order Number: [id number] Reading MD: Wolf Salcido Measurements Intervals [place] Rate: 116 P: 49 GA: 116 QRS: -25 QRSD: 89 T: 126 QT: 373 QTc: 519 Interpretive Statements Sinus tachycardia Borderline left axis deviation Anterior infarct, old Nonspecific T abnormalities, lateral leads Prolonged QT interval Compared to ECG 12/18/2018 22:02:32 Prolonged QT interval now present Myocardial infarct finding still present Electronically Signed On 12-19-2018 17:54:43 CDT by Wolf Salcido [email or web address] <ELECTRONICALLY SIGNED> By: Wolf Salcido MD, FAC 12/19/18 1754 0536 0536 Wolf Salcido MD, [facility] /EPI
--- NOTE | 2018-12-19 20:22 | NUR ---
PT ASSESSMENT CHARTED. ART LINE PLACED. 1 UNIT OF CRYO GIVEN WITH FOLLOW UP FIBRINOGEN NOTED. PROPOFOL TITRATED OFF THIS AM. VERSED REMAINS ON AT 6 MG/HR CURRENTLY, WILL TITRATE INDICATED. PT IS WELL SEDATED AND Q2H TURNS PERFORMED. BLOOD GLUCOSE LEVELS ASSESSED THROUGHOUT THE DAY AND D50 GIVEN X1 DOSE FOR A BLOOD GLUCOSE LEVEL OF 68. FAMILY THOROUGHLY EDUCATED THROUGHOUT THE DAY. DR. STEPHENS CALLED AND UPDATED FAMILY REGARDING LIVER FUNCTION. NO SEDATION VACATION DONE THIS SHIFT BUT SEDATION DECREASED. AUTHORIZED CONTACT LIST UPDATED REQUESTED EVERARDO MARTINEZ BE TAKEN OFF. FAMILY INSTRUCTED TO BRING IN DPOA PAPERWORK IF THERE IS ANY.
[2018-12-20 03:46] VITALS: BP 100/61
[2018-12-20 04:00] VITALS: BP 104/47
[2018-12-20 04:30] VITALS: BP 119/88
[2018-12-20 04:55] LABS: MCH 39.5 pg (26.0-34.0); MCHC 32.1 g/dL (28.0-37.0); MCV 123.1 fL (80.0-100.0); MPV 8.1 fl. (7.2-11.1); RBC 1.55 mil/uL (4.20-5.00); RDW-CV 16.9 % (10.5-14.5); WBC 12.8 thou/uL (4.0-11.0)
[2018-12-20 05:36] LABS: HEMOGLOBIN 6.1 gm/dL (12.0-15.0)
[2018-12-20 05:46] LABS: ALBUMIN 3.5 g/dL (3.4-5.0); CREATININE 1.3 mg/dL (0.6-1.3); MAGNESIUM 2.8 mg/dL (1.8-2.4); POTASSIUM 4.2 mmol/L (3.5-5.1); TOTAL BILIRUBIN 6.5 mg/dL (<0.1-1.0); TOTAL PROTEIN 6.6 g/dL (6.4-8.2)
--- NOTE | 2018-12-20 05:49 | NUR ---
REPORT RECEIVED FROM [facility] ETT 7.5 22@LIP INTACT AND CONNECTED TO VENTILATOR WITH SETTINGS AC 15, TV 550, PEEP 8 AND FIO2 100%. OGT INTACT AND TAPED TO ETT TUBE AT 55CM AT LIP. OGT CONNECTED TO LIS AND DRAINING BROWN SECRETIONS. SECRETIONS FROM ETT ARE NOTED TO BE HEMOPTYSIS. BARRETO INTACT AND PATENT DRAINING VINAY URINE TO BEDSIDE BAG. MONITORS INTACT AND ALARMS SET. VSS AND NO ACUTE CHANGES DURING SHIFT. PT CONTINUE ON VERSED GTT, FENTANYL GTT, LEVOPHED DRIP AND D5NS AT 25 CC/HR VIA PUMP ORDERED. PTS PULSES ARE WEAK AND HAD TO BE DOPPLERED. HGB, HCT AND PLTS LOW THIS AM AND MESSAGE SENT TO MD PHOTO JOURNALIST. WILL CONTINUE TO MONITOR
[2018-12-20 05:50] LABS: CALCIUM 8.1 mg/dL (8.5-10.1)
[2018-12-20 06:44] LABS: INR 3.3
--- NOTE | 2018-12-20 07:50 | CON ---
[address] [address] CONSULTATION Name: SANDRA BEAN Room: [address] ADM IN M.R.#: [id number] Admission: 12/19/18 Attend Phys: Man Sanchez Discharge: Date of : 73 Report #: [id number] THIS REPORT FOR: //name// CC: [facility] physician/PCP Katheryn Galan DATE OF SERVICE: 12/19/2018 ATTENDING PHYSICIAN: Godwin Singleton M.D. REASON FOR EVALUATION: Septic shock, complicated by multiorgan failure, underlying history of advanced liver disease and cirrhosis, likely chronic pancreatitis. HISTORY OF PRESENT ILLNESS: Chart reviewed, patient examined. This is a 43-year-old woman with known history of ethanol abuse and liver disease, also has previous gastric bypass surgery. She has had a previous history of pancreatitis, otherwise has been severe and have a compromised bowel, underwent resection, now has an ostomy as well. She was admitted through the Emergency Room in extremis with profound altered mental status on 12/18. Briefly earlier this month, she was essentially unresponsive. Spouse reports worsening fatigue and weakness. On evaluation, she was found to be hemodynamically unstable, was placed in Intensive Care Unit. She was intubated and now on maximal support with FiO2 of 100 and marginal PaO2. She is on norepinephrine as well. Cultures have been collected. She was started on broad-spectrum therapy with piperacillin, tazobactam as well as vancomycin. At this point, she has not experienced documented fevers. ALLERGIES: None known. MEDICATIONS: Currently include levofloxacin, vancomycin, pantoprazole, rifaximin, methylprednisolone, midazolam, norepinephrine, lactulose, piperacillin and tazobactam. PAST MEDICAL HISTORY: As described above, history of hypertension, depression, anxiety, asthma, chronic anemia, history of pancreatitis with partial pancreas resection. 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 Previous partial colectomy with colostomy, tubal ligation, previous cholecystectomy, gastric bypass in 2003. SOCIAL HISTORY: Nonsmoker. No longer drinks. No illicit drug use. FAMILY HISTORY: Noncontributory. REVIEW OF SYSTEMS: [place] [address] CONSULTATION Name: SANDRA BEAN Room: [address] IN [facility]#: [id number] Admission: 12/19/18 Attend Phys: Man Sanchez Discharge: Date of : 73 Report #: [id number] PHYSICAL EXAMINATION: GENERAL: She appears chronically ill, sequelae of end-stage liver disease, extended rotund abdomen. At this point, she is tired. She is intubated, it was an ET. She has an OG tube in place. NECK: Appears to be supple. HEAD: Normocephalic LUNGS: Diminished breath sounds, scattered crackles. HEART: Regular, tachycardic, distant. I do not appreciate any murmur. ABDOMEN: Distended, somewhat firm. There is no rigidity. GENITOURINARY: Deferred. RECTAL: Deferred. LABORATORY DATA: Lactic acid elevated at 9.5. Fibrinogen is 95. Blood cultures sterile thus far, collected from . CT of the abdomen and pelvis shows extensive ascites, right-sided colostomy. CT chest, extensive diffuse bilateral alveolar infiltrate. ABGs: PH 7.353, pCO2 of 32.4, pO2 of 65.7, was on FiO2 of 100%, assist control. Electrolytes: Sodium 141, potassium 3.0, chloride 109, bicarbonate is 19., anion gap of 13. BUN and creatinine 7 and 1.1. Glucose of 60. AST of 82, ALT of 31, total bilirubin of 2.9, albumin of 0.6. White count 6.6, H and H 7.3 and 21.4, MCV elevated at 119, platelet count of 103. PT of 31. INR of 3.0. ASSESSMENT AND PLAN: Septic shock in the setting of end-stage liver disease with complicated by coagulopathy, profound hypoalbuminemia. We will continue combination therapy. It is difficult to ascertain what degree this is in reversible situation. Prognosis is quite guarded. We will await cultures and adjust as needed, address support as able. There is, however, severe multiorgan dysfunction at this point. <ELECTRONICALLY SIGNED> By: Kirk Ni MD 12/20/18 0750 [id number] Ni MD /nt
[2018-12-20 08:54] VITALS: BP 108/69; BP 90/78
--- NOTE | 2018-12-20 11:30 | NUR ---
DR RIVERA AT BEDSIDE, PEAK PRESSURES HIGH ON THE VENT, ORDERS TO INCREASE FENTANYL AND VERSED TO CALM PATIENTS BREATHING. DR PINEDA CAME TO PLACE ARTERIAL LINE AT BEDSIDE AND DR STEPHENS ALSO CAME TO ASSESS PATIENT AROUND 1040. PATIENT PULSE SUDDENLY DROPPED FROM 115'S TO 70'S. DR STEPHENS ASKED DR PINEDA TO HOLD OFF ON NEW ARTERIAL LINE PLACEMENT AND HE WOULD TALK TO THE FAMILY DUE TO CHANGE IN PATIENT STATUS WITH LIVER FAILURE. PATIENT BEGAN TO AGONAL BREATH ON THE VENTILATOR AND SLOWED HER BREATHING FROM 36 BREATHS PER MINUTE TO 15 WITH[address]. NOT[address] STEPHENS AND DR RIVERA WHO WERE ON THE UNIT AT THE TIME. PATIENT HAD NO PULSE AT THIS TIME, PEA. BEGAN COMPRESSIONS AND CALLED A CODE. PATIENT CODED FOR APPROXIAMTELY 20 MINUTES, DR PUENTE AND DR STEPHENS SPOKE WITH PATIENT FAMILY ON POOR PROGNOSIS AND FAMILY AGREEDED TO STOP CODING AFTER 20 MINS. MULTIPLE ROUNDS OF EPIEPHRINE GIVEN AND AN AMP OF SODIUM BICARB. PATIENT PRONOUNCED AT [address] PUENTE.
--- NOTE | 2018-12-20 13:44 | CON ---
[address] [address] CONSULTATION Name: SANDRA BEAN Room: [address] ADM IN [facility].#: [id number] Admission: 12/19/18 Attend Phys: Man Sanchez Discharge: Date of : 73 Report #: [id number] THIS REPORT FOR: //name// CC: [facility] physician/PCP Katheryn Galan DATE OF SERVICE: 12/19/2018 REFERRING PHYSICIAN: Katheryn Galan MD. CHIEF COMPLAINT: Acute respiratory failure. HISTORY OF PRESENT ILLNESS: The patient is a 43-year-old female who was intubated. Information taken from the patient's . The patient's states that they have been for approximately 14 years. The patient states that a couple of days ago, she began to experience nausea, vomiting. Wednesday morning when she woke up, she was confused, incoherent and continued to have episodes of vomiting. When specifically asked the patient if there was vomitus in the bed, she did admit that there was at that time. He states that he called paramedics at around 8:00 last night or so. The patient was brought to the Emergency Room in a confused, incoherent state. She was intubated for airway protection and respiratory failure. REVIEW OF SYSTEMS: Not obtainable. PAST MEDICAL HISTORY: Significant for abdominal pain. She has a history of pancreatitis. She has had abdominal surgery years ago at [facility]. She has a colostomy. The patient is an alcoholic. She has a history of cirrhosis, respiratory failure, tobacco abuse. ALLERGIES: None known. FAMILY HISTORY: None obtained at this time, is unaware of any family ailments. MEDICATIONS: The patient is on fentanyl and Versed drip. She is on Levophed and that is being tapered. Her antibiotics consist of vancomycin and Zosyn. Lactulose is on the order. She has received some albumin 25%. She is on DuoNeb aerosol treatments. She is on potassium, phosphorus replacement, Protonix, rifaximin, Solu-Medrol. PHYSICAL EXAMINATION: VITAL SIGNS: Blood pressure 96/60, respiratory rate 25, pulse rate 116, temperature 98 degrees. The patient's weight is 190 pounds. GENERAL APPEARANCE: She is sedated. She is orally intubated. [place] [address] CONSULTATION Name: SANDRA BEAN Room: [address] IN [facility].#: [id number] Admission: 12/19/18 Attend Phys: Mna Sanchez Discharge: Date of : 73 Report #: [id number] bilaterally in her calves and Vargas catheter. HEENT: Head is atraumatic. Eyes: Pupils are round, equal, reactive. Slight degree of scleral icterus present She has a subconjunctival edema. EARS: Normal in appearance. Auricular structures are clear. No auditory canal drainage. Oral cavity: The ET tube is in place intact secured. NECK: There is no limitation, freely movable. No JVD or adenopathy. CHEST: Coarse breath sounds, scattered rhonchi, few crackles. CARDIOVASCULAR: Sinus tachycardia, appears to have a regular rhythm on the monitor. ABDOMEN: Midline incision, colostomy on the right. Abdomen is soft, otherwise. EXTREMITIES: Trace of edema bilaterally. NEUROLOGIC: She is sedated. SKIN: Tattoos noted. No rash effect otherwise. NEUROLOGIC: She is sedated. LABORATORY DATA: Most recent arterial blood gas at about 5:10 a.m. revealed a pH of 7.35, pCO2 of 32, pO2 of 66, with a bicarbonate of 17, while on 100% FIO2, tidal volume 550, PEEP of 5, rate of 15. Hemoglobin and hematocrit of 7 and 21, white count 6600. Electrolytes: Sodium 140, potassium 3.0, chloride 109, CO2 of 19, BUN of 7, creatinine 1.1, glucose is 60. Magnesium was low at 1.1, total bilirubin 2.9. Alkaline phosphatase is normal. The SGOT is elevated at 82. Troponin is increased at 1.83. Total protein and albumin are both low. ProBNP 1755. Her initial troponin on admission was 0.15. MEDICAL IMAGING STUDIES: Chest x-ray: ET tube is in adequate position. Bilateral diffuse infiltrates present. CT of the chest was performed on admission revealed extensive diffuse bilateral alveolar infiltrates. CT of the brain was negative. ASSESSMENT: 1. Acute respiratory failure, probably secondary to aspiration, considering the historical input from the patient's . 2. Alcohol abuse. 3. Hepatic cirrhosis. 4. Acute respiratory failure. 5. History of pancreatitis with necrotizing pancreatitis condition, component of peritonitis requiring a colostomy in the past. 6. Elevated troponin. 7. Liver failure with hyperbilirubinemia. RECOMMENDATIONS: The patient is requiring high FiO2 with diffuse infiltrates, decreased compliance and a decreased PaO2 over FiO2 consistent with an adult respiratory distress syndrome condition. She is being treated with antibiotic therapy, supportive care at this time. She is properly sedated as well. The patient has multisystem failure and specifically liver disease [place] [address] CONSULTATION Name: SANDRA BEAN Room: [address] IN [facility]#: [id number] Admission: 12/19/18 Attend Phys: Man Sanchez Discharge: Date of : 73 Report #: [id number] hepatic cirrhosis secondary to her alcoholism. Her prognosis appears to be extremely poor. She will be seen and evaluated by the GI Service. Her lactic acid was elevated. There is a component of sepsis involved as well. At this time, we will continue with her current medical regimen, supportive care from a hemodynamic standpoint. Also, we will repeat arterial blood gases later today and increase her positive end expiratory pressure. Does not appear to have any room right now to start titrating her FiO2 since her pO2 is marginal on 100%. Approximately 35 minutes spent critical care time. In my opinion, the prognosis is extremely poor for this patient and I feel that an aspiration pneumonia is a huge contributing factor to her respiratory ailment. We will repeat ABGs and chest x-ray in the a.m. as well. <ELECTRONICALLY SIGNED> By: Caden Willingham MD 12/20/18 1344 1010 [id number] Nation MD /nt
--- NOTE | 2018-12-20 14:17 | CON ---
[address] [address] CONSULTATION Name: DAVIDE BEANKALIEAmy Room: [address] ADM IN M.R.#: [id number] Admission: 12/19/18 Attend Phys: Man Sanchez Discharge: Date of : 73 Report #: [id number] THIS REPORT FOR: //name// CC: [facility] physician/PCP Katheryn Galan DATE OF SERVICE: 12/19/2018 HISTORY OF PRESENT ILLNESS: The patient is a 43-year-old black female who I was asked to see in the hospital today after she was noted to have an abnormal troponin. The history is obtained from the old records. No family member is available. The patient is currently sedated on the ventilator. The patient presented in October with abdominal pain. She was found to have evidence of cirrhosis secondary to alcohol abuse and history of pancreatitis, previous pancreatectomy. She had evidence of toxic encephalopathy. She was discharged home. Apparently, she is being considered for liver transplant. The patient presented to the hospital last night. She was brought by her . She apparently had had a pancreatic abscess and had a colostomy in place. Apparently, according to family member, she was confused and weak. She has not felt well for several days. When paramedics arrived, her blood sugar was low. She was given an ampule of dextrose. She was drowsy. She could not answer questions. She was brought to the emergency room and intubated last night. She was noted to have low blood pressure, was placed on pressors. She was noted to have an abnormal troponin and Cardiology consultation was requested. PAST MEDICAL HISTORY: Previous gastric bypass, cholecystectomy. She has a history of cirrhosis. She has a drain for pancreatic abscess. MEDICATIONS: Metoprolol, furosemide, spironolactone, oxycodone. ALLERGIES: She had no known drug allergies. PHYSICAL EXAMINATION: GENERAL: Reveals a large middle-aged black female, lying in bed on ventilator. VITAL SIGNS: She has blood pressure of ____. She is on IV propofol and Levophed. HEENT: She is anicteric. Mucous members appear moist. NECK: Veins difficult to assess due to her large size. CHEST: Clear to auscultation. CARDIAC: Regular rate and rhythm, grade 2 systolic ejection murmur. ABDOMEN: Soft. EXTREMITIES: Had no edema. Dorsalis pedis pulse cannot be palpated. SKIN: Cool and dry. NEUROLOGIC: She is unresponsive to voice or painful stimuli. RADIOLOGICAL DATA: ECG showed sinus tachycardia, [place] [address] CONSULTATION Name: SANDRA BEAN Room: [address] IN [facility].#: [id number] Admission: 12/19/18 Attend Phys: Man Sanchez Discharge: Date of : 73 Report #: [id number] x-rays, CT scan of the head performed last night without contrast showed no significant abnormalities. She had a portable chest x-ray that showed bilateral infiltrates. LABORATORY DATA: Sodium 141, BUN 7, creatinine 1.1, SGOT 82, bilirubin 2.9, SGPT 31, albumin 0.6. Ammonia 116. Troponin 1.83. BNP 1755. Her white blood cell count 6.6, hemoglobin 7.3, hematocrit 21.4, platelet count 103,000. IMPRESSION AND RECOMMENDATIONS: 1. Type 2 myocardial infarction. Suspect the patient has an elevated troponin, not due to acute myocardial infarction. The patient has multiple medical problems. We would not recommend cardiac medications. I would perform an echocardiogram. 2. Cirrhosis. 3. Anemia. 4. Altered mental status. 5. Anemia. No history of bleeding. <ELECTRONICALLY SIGNED> By: Wolf Salcido MD, FACC 12/20/18 1417 1036 [id number] Salcido MD, FAC /nt
== END 2018-12-20 11:13 | DRG 871 ==
LOC: M.ERS 21:46 → M.ICU 12-19 → M.TBA-ER 12-19 → M.ICU 12-19 00:47
PROVIDERS: Family Medicine; Internal Medicine; Internal Medicine Pulmonary Disease; ADMIT Internal Medicine
PROC: 5A1945Z Respiratory Ventilation, 24-96 Consecutive Hours (ICD-10-PCS; principal; 2018-12-18)
PROC: 0BH17EZ Insertion of Endotracheal Airway into Trachea, Via Natural or Artificial Opening (ICD-10-PCS; principal; 2018-12-18)
PROC: 02HV33Z Insertion of Infusion Device into Superior Vena Cava, Percutaneous Approach (ICD-10-PCS; principal; 2018-12-18)
PROC: 03HY32Z Insertion of Monitoring Device into Upper Artery, Percutaneous Approach (ICD-10-PCS; 2018-12-19)
PROC: 30233M1 Transfusion of Nonautologous Plasma Cryoprecipitate into Peripheral Vein, Percutaneous Approach (ICD-10-PCS; 2018-12-19)
PROC: 30233N1 Transfusion of Nonautologous Red Blood Cells into Peripheral Vein, Percutaneous Approach (ICD-10-PCS; 2018-12-19)
DX: A41.9 Sepsis, unspecified organism (principal); I21.A1 Myocardial infarction type 2; R65.21 Severe sepsis with septic shock; J69.0 Pneumonitis due to inhalation of food and vomit; J96.01 Acute respiratory failure with hypoxia; J96.02 Acute respiratory failure with hypercapnia; G92 Toxic encephalopathy; E43 Unspecified severe protein-calorie malnutrition; N17.0 Acute kidney failure with tubular necrosis; I50.21 Acute systolic (congestive) heart failure; D65 Disseminated intravascular coagulation [defibrination syndrome]; D68.9 Coagulation defect, unspecified; K86.1 Other chronic pancreatitis; I42.9 Cardiomyopathy, unspecified; K92.2 Gastrointestinal hemorrhage, unspecified; F41.9 Anxiety disorder, unspecified; F32.9 Major depressive disorder, single episode, unspecified; J45.909 Unspecified asthma, uncomplicated; K72.90 Hepatic failure, unspecified without coma; E16.2 Hypoglycemia, unspecified; D64.9 Anemia, unspecified; I11.0 Hypertensive heart disease with heart failure; K70.31 Alcoholic cirrhosis of liver with ascites; E87.6 Hypokalemia; E88.09 Other disorders of plasma-protein metabolism, not elsewhere classified; G89.29 Other chronic pain; Z68.36 Body mass index [BMI] 36.0-36.9, adult; Z90.49 Acquired absence of other specified parts of digestive tract; Z93.3 Colostomy status; Z98.84 Bariatric surgery status; Z28.21 Immunization not carried out because of patient refusal; Z79.899 Other long term (current) drug therapy